=== PATIENT | female | born 1930 | race Caucasian/White ===

== ENCOUNTER 2016-12-24 16:46 | Emergency (ER) | payer MEDICARE, BC ==
[2016-12-24 17:14] VITALS: RESP 18
--- NOTE | 2016-12-24 17:33 | ED ---
General Adult HPI - General Chief complaint: Fall Stated complaint: Shoulder Injury Time Seen by Provider: 12/24/16 16:59 Source: patient, EMS, RN notes reviewed Mode of arrival: EMS Limitations: altered mental status - History of Present Illness Initial comments: Patient is a pleasant 86-year-old female presenting to the emergency department with left arm pain. Patient did have a fall prior to arrival. Patient is unclear why she fell. Patient is a very poor historian. Patient states she does remember the fall. Patient complains of discomfort only of her left arm. Other than this patient has no complaints. Discomfort increases with movement. - Related Data Home Medications Medication Instructions Recorded Confirmed Calcium Carbonate [Calcium] 600 mg PO DAILY 12/24/16 12/24/16 Ferrous Sulfate [Feosol] 325 mg PO TID 12/24/16 12/24/16 Levothyroxine Sodium [Synthroid] 100 mcg PO DAILY 12/24/16 12/24/16 Losartan Potassium [Cozaar] 100 mg PO DAILY 12/24/16 12/24/16 Melatonin 10 mg PO HS 12/24/16 12/24/16 Metoprolol Tartrate [Lopressor] 25 mg PO BID 12/24/16 12/24/16 Multivitamins, Thera [Multivitamin 1 tab PO DAILY 12/24/16 12/24/16 (formulary)] Omeprazole [PriLOSEC] 20 mg PO AC-BRKFST 12/24/16 12/24/16 Simvastatin [Zocor] 40 mg PO HS 12/24/16 12/24/16 Previous Rx's Medication Instructions Recorded traMADol HCl [Ultram] 50 mg PO Q6H PRN #20 tab 12/24/16 Allergies Allergy/AdvReac Type Severity Reaction Status Date / Time No Known Allergies Allergy Verified 12/24/16 17:41 Review of Systems ROS Statement: Those systems with pertinent positive or pertinent negative responses have been documented in the HPI. ROS Other: All systems not noted in ROS Statement are negative. Constitutional: Denies: fever Eyes: Denies: eye pain ENT: Denies: ear pain Respiratory: Denies: cough Cardiovascular: Denies: chest pain Endocrine: Denies: fatigue Gastrointestinal: Denies: abdominal pain Genitourinary: Denies: urgency Musculoskeletal: Denies: back pain Skin: Denies: rash Neurological: Denies: weakness Past Medical History Past Medical History: Coronary Artery Disease (CAD), Dementia, Hypertension History of Any Multi-Drug Resistant Organisms: None Reported Past Surgical History: Coronary Bypass/CABG, Heart Catheterization With Stent Past Psychological History: No Psychological Hx Reported Smoking Status: Never smoker Past Alcohol Use History: None Reported Past Drug Use History: None Reported General Exam Limitations: altered mental status General appearance: alert, in no apparent distress Head exam: Present: atraumatic, normocephalic Eye exam: Present: normal appearance, PERRL, EOMI ENT exam: Present: normal oropharynx Neck exam: Present: normal inspection. Absent: tenderness Respiratory exam: Present: normal lung sounds bilaterally Cardiovascular Exam: Present: regular rate, normal rhythm Expanded Peripheral pulses: 2+: Radial (L) GI/Abdominal exam: Present: soft. Absent: distended, tenderness Extremities exam: Present: tenderness (Left upper arm with diffuse tenderness from the shoulder to the elbow. There appears to be some swelling near the shoulder.), other (Decreased range of motion left upper arm secondary to pain. Distally the extremity is neurovascular intact.) Neurological exam: Present: alert. Absent: motor sensory deficit Expanded Sensory exam: Upper Extremity Light Touch: Normal, Lower Extremity Light Touch: Normal Motor strength exam: RUE: 5, LUE: 5, RLE: 5, LLE: 5 Psychiatric exam: Present: normal affect, normal mood Skin exam: Present: normal color Course Vital Signs 12/24/16 12/24/16 16:53 18:16 Temperature 97.0 F L 97 F L Pulse Rate 51 L 56 L Respiratory 18 18 Rate Blood Pressure 193/83 164/72 O2 Sat by Pulse 95 94 L Oximetry EKG Findings - EKG Comments: EKG Findings:: Sinus bradycardia at 51. First-degree AV block with SD of 224. QRS 82. QT 470. QTc 433. Normal axis. Voltage criteria for LVH. Nonspecific ST-T. Medical Decision Making - Medical Decision Making Patient reexamined. Patient and family updated. - Radiology Data Radiology results: image reviewed (Computed tomography scan of the brain shows no acute process. Chest x-ray shows chronic changes without acute process. X- ray left humerus shows impacted traverse fracture proximal humeral metaphysis.) Disposition Clinical Impression: Fall, Proximal humerus fracture Disposition: HOME SELF-CARE Condition: Stable Instructions: Fall Prevention for Older Adults (ED), Proximal Humerus Fracture (ED) Additional Instructions: Ceoj-sno-bdalxvm Tylenol as needed. Ice to affected area. Please follow-up with primary care physician and orthopedics this week. Return for passing out, confusion, worsening or change in symptoms or other concerns. Prescriptions: traMADol HCl [Ultram] 50 mg PO Q6H PRN #20 tab PRN Reason: Pain/Discomfort Referrals: Nonstaff,Physician [Primary Care Provider] - 1-2 days Jorje Leblanc MD [STAFF PHYSICIAN] - 1-2 days Issac Gutierrez DO [Doctor of Osteopathic Medicine] - 1-2 days Time of Disposition: 18:40
--- NOTE | 2016-12-24 18:08 | CT ---
EXAMINATION TYPE: CT brain wo con DATE OF EXAM: 12/24/2016 6:00 PM HISTORY: Patient complains of headache post fall today. CT DLP: 774.5 mGycm. Automated Exposure Control for Dose Reduction was Utilized. TECHNIQUE: CT scan of the head is performed without contrast. COMPARISON: None. FINDINGS: There is no acute intracranial hemorrhage or midline shift identified. There is diffuse v entricular and sulcal prominence consistent with diffuse age-related cerebral atrophy. There is low- attenuation in the periventricular white matter consistent with chronic small vessel ischemic change. 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 The globes are intact and the visualized sinuses are clear. The calvarium is intact. IMPRESSION: No acute intracranial hemorrhage or midline shift. There is mild to moderate diffuse ag e-related cerebral atrophy and moderate chronic small vessel ischemic change with old infarcts all no nazario.
--- NOTE | 2016-12-24 18:16 | XR ---
EXAMINATION TYPE: XR humerus LT DATE OF EXAM: 12/24/2016 6:10 PM CLINICAL HISTORY: Fall injury with pain. TECHNIQUE: Two views of the left humerus are obtained. COMPARISON: None. FINDINGS: Osseous structures are demineralized. There is acute impacted transverse fracture through p roximal humeral metaphysis. No glenohumeral joint dislocation is seen. There is joint space loss at a cromioclavicular joint. Visualized left elbow joint is within normal limits. Overlying soft tissue is unremarkable. IMPRESSION: There is acute impacted transverse fracture proximal humeral metaphysis. (Initial encounter close type post traumatic fracture)
[2016-12-24 18:17] VITALS: BP 164/72; PULSE 56; TEMP 97
--- NOTE | 2016-12-24 18:17 | XR ---
EXAMINATION TYPE: XR chest 2V DATE OF EXAM: 12/24/2016 6:10 PM COMPARISON: NONE HISTORY: Chest and left shoulder pain after fall injury. TECHNIQUE: Frontal and lateral views of the chest are obtained. FINDINGS: Sternal wires are present. There is chronic parenchymal change without suspicious no focal air space opacity, pleural effusion, or pneumothorax seen. The cardiac silhouette size is enlarged. The osseous structures are demineralized. Acute impacted fracture left proximal humerus is noted. IMPRESSION: Chronic parenchymal change and cardiomegaly without acute pulmonary process.
[2016-12-24] MEDS ORDERED: traMADol 50 MG STARTER PACK 3 TAB BTL PO STA (18:40)
== END 2016-12-24 18:59 | disposition home or self-care (01) ==
LOC: EC 16:46
DX: S42.202A Unspecified fracture of upper end of left humerus, initial encounter for closed fracture (principal); I25.10 Atherosclerotic heart disease of native coronary artery without angina pectoris; I10 Essential (primary) hypertension; F03.90 Unspecified dementia, unspecified severity, without behavioral disturbance, psychotic disturbance, mood disturbance, and anxiety; Z79.899 Other long term (current) drug therapy; W19.XXXA Unspecified fall, initial encounter; Y92.009 Unspecified place in unspecified non-institutional (private) residence as the place of occurrence of the external cause
CPT/HCPCS: 70450; 71020; 93005; 99284

== ENCOUNTER → 2017-06-05 | Outpatient (CLI) | payer MEDICARE, BC ==
--- NOTE | 2017-06-05 17:16 | US ---
EXAMINATION TYPE: US carotid duplex BILAT DATE OF EXAM: 06/05/2017 COMPARISON: NONE CLINICAL HISTORY: R29.6 Repeated Falls. EXAM MEASUREMENTS: RIGHT: Peak Systolic Velocity (PSV) cm/sec ----- Right CCA: 64.5 ----- Right ICA: 87.2 ----- Right ECA: 160.4 ICA/CCA ratio: 1.4 RIGHT: End Diastole cm/sec ----- Right CCA: 10.4 ----- Right ICA: 19.0 ----- Right ECA: 15.0 LEFT: Peak Systolic Velocity (PSV) cm/sec ----- Left CCA: 69.2 ----- Left ICA: 58.6 ----- Left ECA: 97.1 ICA/CCA ratio: 0.8 LEFT: End Diastole cm/sec ----- Left CCA: 13.3 ----- Left ICA: 13.0 ----- Left ECA: 8.0 VERTEBRALS (direction of flow): Right Vertebral: Antegrade Left Vertebral: Antegrade Rhythm: Normal Heterogeneous plaque at bilateral bulbs, with no significant stenosis seen. scanned elderly patient in wheelchair IMPRESSION: There is antegrade flow in the vertebral arteries. The images and measurements suggest c lose to 50% stenosis in the external carotid arteries and 20-30% stenosis in the internal carotid art eries. Criteria for Assigning % of Stenosis / Diameter reduction (Estimation based on the indirect measurements of the internal carotid artery velocities (ICA PSV). 1. Normal (no stenosis)=ICA PSV < 125 cm/s: ratio < 2.0: ICA EDV<40 cm/s. 2. Less than 50% stenosis=ICA PSV < 125 cm/s: ratio < 2.0: ICA EDV<40 cm/s. 3. 50 to 69% stenosis=ICA PSV of 125 to 230 cm/s: ration 2.0 ? 4.0: ICA EDV 40-100 cm/s. 4. Greater than 70% stenosis to near occlusion= ICA PSV > 230 cm/s: ratio > 4.0: ICA EDV > 100 cm/s. 5. Near occlusion= ICA PSV velocities may be low or undetectable: variable ratio and ICA EDV. 6. Total occlusion=unable to detect flow.
== END | disposition home or self-care (01) ==
LOC: RADUSWWP 16:34
PROVIDERS: ATTEND Family Medicine
DX: R29.6 Repeated falls (principal)
CPT/HCPCS: 93880